=== PATIENT | male | born 1960 | race African-American/Black ===

== ENCOUNTER 2024-08-03 17:25 | Emergency (ER) | payer MEDICAID ==
[~2024-08-03] VITALS: Ht 162.6 cm; Wt 67.6 kg
[2024-08-03] MEDS ORDERED: CLOP75TA2 PO (17:42)
[2024-08-03] MEDS ORDERED: BISO5TAB14 PO (17:42)
[2024-08-03] MEDS ORDERED: NORV5TAB PO (17:42)
[2024-08-03 18:40] LABS: BASO % 0.7 % (0.0-1.0); EOS # 0.3 10^3/uL (0.0-0.5); EOS % 5.8 % (0.0-3.0); HEMATOCRIT 41.8 % (42.0-52.0); HEMOGLOBIN 14.7 g/dl (13.5-17.5); LYMPH # 2.7 10^3/uL (1.5-5.0); LYMPH % 47.7 % (24.0-44.0); MEAN CORPUSCULAR HEMOGLOBIN 26.3 pg (27.0-33.0); MEAN CORPUSCULAR HGB CONC 35.2 g/dl (32.0-36.5); MEAN CORPUSCULAR VOLUME 74.6 fl (80.0-96.0); MONO # 0.5 10^3/uL (0.0-0.8); MONO % 9.2 % (2.0-8.0); NEUTROPHILS % 36.4 % (36.0-66.0); PLATELET COUNT, AUTOMATED 314 10^3/uL (150-450); WHITE BLOOD COUNT 5.6 10^3/uL (4.0-10.0)
[2024-08-03 19:11] LABS: BLOOD UREA NITROGEN 12 MG/DL (9-23); CALCIUM LEVEL 9.4 MG/DL (8.3-10.6); CARBON DIOXIDE LEVEL 24 MMOL/L (20-31); CHLORIDE LEVEL 107 MMOL/L (98-107); CREATININE FOR GFR 1.08 MG/DL (0.70-1.30); GLOMERULAR FILTRATION RATE > 60.0 (>49); GLUCOSE, FASTING 207 MG/DL (74-106); POTASSIUM SERUM 3.9 MMOL/L (3.5-5.1); SODIUM LEVEL 136 MMOL/L (136-145)
[2024-08-03 19:17] LABS: CK-MB VALUE MASS < 1.0 NG/ML (<3.6)
[2024-08-03 19:21] LABS: CPK CREATINE PHOSPHOKINASE 238 U/L (46-171); MB/CK RELATIVE INDEX 0.42 (< OR =4)
[2024-08-03] MEDS ORDERED: NITROGLYCERIN 0.4MG SUBL TABLET SL PRN (19:30)
[2024-08-03] MEDS ORDERED: ISOVUE-370 76% 100ML VIAL As Ordered ONE (19:36)
[2024-08-03] MEDS: ASPIRIN 81MG CHEW TABLET PO ONE (19:37)
[2024-08-03] MEDS ORDERED: HOME MED LIST COMPLETE! XX SCH (19:55)
[2024-08-03 20:10] LABS: CK-MB VALUE MASS 1.3 NG/ML (<3.6)
[2024-08-03 20:11] LABS: MB/CK RELATIVE INDEX 0.61 (< OR =4)
[2024-08-03 22:26] VITALS: BP 146/93; TEMP 97.3; O2SAT 100
== END 2024-08-03 22:29 | disposition home or self-care (01) ==
LOC: M ED 17:25
DX: R07.9 Chest pain, unspecified (principal); R91.1 Solitary pulmonary nodule; I10 Essential (primary) hypertension; Z79.899 Other long term (current) drug therapy
CPT/HCPCS: 36415; 71045; 71275; 80048; 82550; 82553; 84484; 85025; 93005; 93041; 94760; 99285; Q9967